=== PATIENT | female | born 1950 | race Caucasian/White ===

== ENCOUNTER 2017-05-13 10:03 | Emergency (ER) | payer MEDICARE, OTHER ==
[~2017-05-13] VITALS: Ht 165.1 cm; Wt 67.8 kg
[~2017-05-13 10:03] MED LIST: ARICEPT10 MG PO; CHANTIX1 M1 PO; CLARINEX5 MG PO; CLONAZEPAM1 MG PO; CLONIDINE HCL0.1 MG PO; EFFEXOR-XR75 MG PO; LEVOTHYROXIN0.025 M2 PO; METOCLOPRAMIDE10 M3 PO; MOTRIN800 MG PO; SEROQUEL XR300 M1 PO; VITAMIN D5000 I3 PO
[2017-05-13 13:26] VITALS: BP 130/64
== END 2017-05-13 13:34 | disposition home or self-care (01) ==
LOC: ED 10:03
DX: G89.29 Other chronic pain (principal); M54.9 Dorsalgia, unspecified; J44.9 Chronic obstructive pulmonary disease, unspecified; Z88.0 Allergy status to penicillin
CPT/HCPCS: J1885